=== PATIENT | male | born 1990 | race Caucasian/White ===

== ENCOUNTER → 2016-12-02 | Outpatient (CLI) | payer BC ==
[2016-12-02 13:19] LABS: ALT/SGPT 29 U/L (12-78); AST/SGOT 14 U/L (15-37); BLOOD UREA NITROGEN 14 mg/dl (7-18); BUN/CREATININE RATIO 10.9 (10-20); CALCIUM 8.7 mg/dl (8.5-10.1); CARBON DIOXIDE 31 mmol/L (21-32); CHLORIDE 104 mmol/L (98-107); GLUCOSE 75 mg/dl (70-99); POTASSIUM 4.8 mmol/L (3.5-5.1); SODIUM 140 mmol/L (136-145)
[2016-12-02 13:21] LABS: ALB/GLOB RATIO 1.3 (0.9-2); ALKALINE PHOSPHATASE 74 U/L (45-117); CHOLESTEROL 133 mg/dl (0-200); CHOLESTEROL/HDL RATIO 2.8; HDL CHOLESTEROL 47 mg/dl; LDL CHOLESTEROL CALCULATED 63 mg/dl; TRIGLYCERIDES 116 mg/dl (0-150); VERY LOW DENSITY LIPOPROT CALC 23 mg/dl
== END | disposition home or self-care (01) ==
LOC: C.LABBFT 10:12
PROVIDERS: ATTEND Internal Medicine
DX: Z00.00 Encounter for general adult medical examination without abnormal findings (principal)

== ENCOUNTER 2020-02-25 08:28 | Inpatient (IN) ==
[2020-02-25] MEDS ORDERED: PROCHLORPERAZINE 2 ML IV ONE (08:33)
[2020-02-25] MEDS ORDERED: FAMOTIDINE 20MG IV PUSH 20 MG/5 ML SYR IV STA (08:33)
[2020-02-25] MEDS ORDERED: DiphenhydrAMINE HCL 50 MG/ML VIAL IV STA (08:33)
--- OUTSIDE RECORDS SUMMARY | 2020-02-25 08:33 | External Medical Summary | Continuity of Care Document ---
:1990 Author Name Luisito Arias, Provider Address Unavailable Unavailable , Care Team Providers Name Role Phone Teja Duran [email or web address] Zohaib Chan II, [email or web address] CLAYTON ROMEO M.D., JESI Traore Unavailable Unavailable Unavailable Unavailable Unavailable Problems Blood tests for routine general physical examination (V72.62 ) (Z00.00) Epididymitis (604.90) (N45.1) Scrotal hematoma (608.83) (S30.22XA) Encounter for sterilization (V25.2) (Z30.2) Encounter for contraceptive planning (V25.09) (Z30.09) Nonvenomous insect bite (919.4) (W57.XXXA) Allergies and Adverse Reactions No Known Drug Allergies (Allergy) Medications diazePAM 5 MG Oral Tablet; TAKE 1 TABLET 1 HOUR PRIOR TO PROCEDURE. DO Zohaib Chan II Start: 15-Dec-2017 Quantity: 1 Refills: 0 oxyCODONE-Acetaminophen 7.5-325 MG Oral Tablet; TAKE 1 TO 2 TABLETS EVERY 4 TO 6 HOURS NEEDED FOR PAIN. DO Zohaib Chan II Start: 15-Dec-2017 Quantity: 3 Refills: 0 oxyCODONE-Acetaminophen 7.5-325 MG Oral Tablet; TAKE 1 TO 2 TABLETS EVERY 4 TO 6 HOURS NEEDED FOR PAIN. DO Zohaib Chan II Start: 10-Mar-2018 Quantity: 12 Refills: 0 Ketorolac Tromethamine 10 MG Oral Tablet ; TAKE 1 TABLET 3 TIMES DAILY AFTER MEALS. DO Zohaib Chan II Start: 10-Mar-2018 Quantity: 12 Refills: 0 Procedures History of Shoulder Surgery Status: Comp leted Immunizations Immunizations not documented Family History Father Family history of kidney stones (V18.69) (Z84.1) Status: Act kimberly Social History - Smoking Status Never smoked tobacco Plan of Treatment Planned Observations Planned Goals not documented Results No Known Results Results not documented Encounters Appointment; Zohaib Chan II, DO 10-Mar-2018 9:00 Encounter Diagnosis: Problem not documented Appointment; Zohaib Chan II, DO 03-Mar-2018 11:00 Encounter Diagnosis: Problem not documented Appointment; Urology, Room 8 03-Mar-2018 10:50 Encounter Diagnosis: Problem not documented Appointment; Urology, Nursing Station 15-Sep-2018 8:30 Encounter Diagnosis: Problem not documented
[2020-02-25] MEDS ORDERED: PANTOprazole 80 MG in DEXTROSE 5% 100 ML IV ONE (08:37)
[2020-02-25] MEDS ORDERED: PANTOPRAZOLE BOLUS/DRIP 1 EA IV STA (08:37)
[2020-02-25] MEDS ORDERED: SODIUM CHLORIDE 0.9% 1000ML 1,000 ML IV SCH (08:45)
[2020-02-25] MEDS ORDERED: PANTOprazole 40 MG in DEXTROSE 5% 100 ML IV SCH (08:52)
--- NOTE | 2020-02-25 08:59 | Emergency Department Note ---
Impression & Plan Hematemesis, GI bleed, Acute blood loss anemia, Syncope ED Provider Note NAME: EMILIO HERNANDEZ AGE: 29 SEX: M ARRIVES VIA: Ambulance INFORMANT: Patient, ED PROVIDER(S): Tucker Amaral MD CHIEF COMPLAINT: Vomiting blood PLAN: Disposition: Admit MEDICAL DECISION MAKING: The patient is a pleasant 29-year-old gentleman who presents emergency department after developing acute hematemesis of gross red blood though he does report initial coffee grounds that began around 7 AM this morning and persisted throughout today in setting of feeling upper abdominal pain since Wednesday afternoon with associated burning and he has been taking an acids. Patient had syncopal episode. Denies headstrike. Patient reports he does take ibuprofen regularly for back pain. He denies any regular alcohol use. Denies history of liver disease. He denies any history of similar episodes. He denies any shortness of breath, fevers, chills, diarrhea, bloody or black stools, urinary symptoms. On arrival the patient is uncomfortable and pale appearing but no acute distress, afebrile with stable vital signs. He appears clinically dry. He has mild epigastric tenderness without guarding or rebound. There is no crepitus on palpation of the neck and chest wall. The patient's gross hematemesis prior to arrival he was consented for blood transfusion if his hematemesis persists or he becomes unstable, in addition to significant acute bl ood loss anemia. The patient was agreeable with this. EKG unremarkable without evidence of acute ischemia. CXR negative/no free air. WBC and platelets. H/H 10.8/32.3 without prior values for comparison. Chemistry without acidosis. BUN elevated at 23. INR 1.2. LFTs and electrolytes unremarkable. Troponin negative. Lipase wnl. Given patient's anemia Type and cross ordered to hold. However, patient remained hemodynamically stable and did not have repeat hematemesis. Protonix bolus/gtt administered. CT abd/pelvis with splenomegaly and hiatal hernia and otherwise no acute findings. Case was [place] Mer[place] B[place] [facility], with Dr. Choudhary, [facility] [place] who will evaluate the patient for admission and GI consultation. Triage Nursing notes reviewed and agree them. Additional history obtained from EMS. Prior medical records reviewed Vital Signs: reviewed and remarkable for no significant abnormalities Differential diagnosis: Appendicitis, testicular torsion, infections, diverticulitis, UTI, obstruction, mesenteric ischemia, aortic pathology, inflammatory bowel disease, renal colic, PUD, pancreatitis, biliary pathology, hernia, volvulus, constipation, as well as other pathologies. ER treatment provided: See below. Diagnostics interpreted by me: ECG: NSR, 64 bpm, no ectopy, no overt ST elevation or depression, QTC 375, QRS 80. Cardiac Monitoring: An order for continuous cardiac monitoring was placed and demonstrated NSR, 64 bpm, no ectopy Laboratory studies: See below Imaging studies: SINGLE VIEW CHEST CLINICAL HISTORY: Atypical chest pain. FINDINGS: An AP, portable, upright chest radiograph is compared to study dated 03/08/2018. The cardiomediastinal silhouette is unremarkable. The lungs and pleural spaces are clear. No pneumothorax is seen. The bony thorax is grossly intact. IMPRESSION: No active disease in the chest. -- CT SCAN OF THE ABDOMEN AND PELVIS WITH IV CONTRAST CLINICAL HISTORY: Hemoptysis. Left lower quadrant abdominal pain. COMPARISON STUDY: Abdominal CT dated 03/08/2018. TECHNIQUE: Following the IV administration of 95 cc of Optiray 320, CT scan of the abdomen and pelvis is performed from the lung bases to the proximal femora. Images are reviewed in the axial, sagittal, and coronal planes. IV contrast was administered without complication. A dose lowering technique was utilized adhering to the principles of ALARA. The examination is modestly degraded by motion artifact. CT DOSE: 323.77 mGy.cm FINDINGS: Lung bases: The heart is normal in size and without pericardial effusion. The lung bases are clear noting dependent atelectasis. There is a small hiatal hernia. Liver: The contrast-enhanced liver is normal in size, contour, and attenuation. There is no intrahepatic biliary ductal dilatation. The hepatic veins and portal veins are patent. Gallbladder: Unremarkable. Spleen: The spleen is enlarged measuring 14.5 cm in length. Pancreas: Unremarkable. Adrenal glands: Unremarkable. Kidneys: The contrast enhanced kidneys are normal in size and without hydronephrosis. The kidneys enhance symmetrically. Abdominal vasculature: The abdominal aorta is normal in course and caliber. Bowel: Mild/moderate fecal retention is noted throughout the colon. There is no bowel obstruction. The appendix is normal as imaged. Peritoneum: There is no intraperitoneal free air or abdominal ascites. There is a small fat-containing umbilical hernia. Lymphadenopathy: None. Pelvic viscera: The bladder is mildly distended but otherwise normal in appearance. The prostate and seminal vesicles are normal as imaged. Surgical clips are noted along the spermatic cord bilaterally. Skeletal structures: No lytic or blastic lesions are seen. IMPRESSION: 1. No acute infectious or inflammatory findings are identified in the abdomen or pelvis. 2. Splenomegaly. 3. Small hiatal hernia. 4. Additional findings as above. Consultation(s): Case was d/w Meryl Banda, [facility], with Dr. Choudhary, [facility] [place]. HPI: The patient is a pleasant 29-year-old gentleman who presents emergency department after developing acute hematemesis of gross red blood though he does report initial coffee grounds that began around 7 AM this morning and persisted throughout today in setting of feeling upper abdominal pain since Wednesday after noon with associated burning and he has been taking an acids. Patient had syncopal episode. Denies headstrike. Patient reports he does take ibuprofen regularly for back pain. He denies any regular alcohol use. Denies history of liver disease. He denies any history of similar episodes. He denies any shortness of breath, fevers, chills, diarrhea, bloody or black stools, urinary symptoms. ROS: See above HPI for pertinent positives & negatives. A total of 10 systems r eviewed and were otherwise negative. PAST MEDICAL HISTORY:See Below PAST SURGICAL HISTORY:See Below FAMILY HISTORY:See Below SOCIAL HISTORY:See Below HOME MEDICATIONS:See Below ALLERGIES:See Below VITALS:See Below PHYSICAL EXAMINATION: GENERAL: Awake, alert, uncomfortable, pale-appearing, in no distress HENT: Normocephalic, atraumatic. Oropharynx with dry mucous membranes and otherwise unremarkable. EYES: Normal conjunctiva. Sclera non-icteric. NECK: Supple. No nuchal rigidity. FROM. No JVD. No crepitus of the neck or chest. RESPIRATORY: Clear to auscultation. CARDIAC: Regular rate, normal rhythm. Extremities warm and well perfused. Pulses equal. ABDOMEN: Soft, non-distended. Mild epigastric tenderness to palpation. No rebound or guarding. No masses. RECTAL: Deferred. MUSCULOSKELETAL: Chest examination reveals no tenderness. The back is symmetrical on inspection without obvious abnormality. There is no CVA tenderness to palpation. No joint edema. LOWER EXTREMITIES: Calves are equal size bilaterally and non-tender. No edema. No discoloration. NEURO: Normal sensorium. No sensory or motor deficits noted. SKIN: Mild pallor. No rash or jaundice noted. ED COURSE: Critical Care: I have personally spent greater 65 than minutes of critical care time in the direct management of this patient. This includes bedside care, interpretation of diagnostic studies, and testing, discussion with consultants, patient, and family members, and other required patient management activities. This 65 minutes is in excess of all separately billable procedures. 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 Beliefs That Will Affect Care: None Current Living Situation: Spouse Feels Safe at Home: Yes Smoking Status: Former smoker Second Hand Exposure: No ; Hx Alcohol Use: Yes Alcohol type: beer Alcohol Intake Frequency: Weekly Hx Substance Use: No Allergies Allergies Allergy/AdvReac Type Severity Reaction Status Date / Time No Known Allergies Allergy Mild Verified 02/25/20 10:36 Home Meds Home Medications Medication Instructions Recorded Confirmed No Known Home Medications 02/25/20 02/25/20 Results & Data (ED) Vital Signs Vital Signs - 24 hr 02/25/20 08:30 02/25/20 08:35 02/25/20 08:36 Temperature 36.6 C Temperature Source Oral Pulse Rate 79 78 82 Pulse Rate [Finger] Pulse Rate from SpO2 Sensor 80 81 Respiratory Rate 22 20 22 Respiratory Effort / Characteristics Non-Labored Spontaneous Respiratory Depth Normal Respiratory Pattern Regular Blood Pressure 121/67 121/67 107/70 Blood Pressure [Right Arm] Blood Pressure Mean 82 85 85 Blood Pressure Mean [Right Arm] Blood Pressure Position Lying Pulse Oximetry 99 99 100 Oxygen Delivery Method Room Air Sepsis Recent Fever Within 48 Hours No Sepsis New/Unexplained Change in Mental Status No Sepsis Action Taken by Nursing No Action Required 02/25/20 08:38 02/25/20 08:45 02/25/20 08:51 Temperature Temperature Source Pulse Rate 81 92 H Pulse Rate [Finger] Pulse Rate from SpO2 Sensor 83 Respiratory Rate 23 20 Respiratory Effort / Characteristics Respiratory Depth Respiratory Pattern Blood Pressure 107/65 Blood Pressure [Right Arm] Blood Pressure Mean 67 Blood Pressure Mean [Right Arm] Blood Pressure Position Pulse Oximetry 100 99 99 Oxygen Delivery Method Room Air Sepsis Recent Fever Within 48 Hours Sepsis New/Unexplained Change in Mental Status Sepsis Action Taken by Nursing 02/25/20 09:00 02/25/20 09:01 02/25/20 09:15 Temperature Temperature Source Pulse Rate 81 81 76 Pulse Rate [Finger] Pulse Rate from SpO2 Sensor Respiratory Rate 22 20 17 Respiratory Effort / Characteristics Respiratory Depth Respiratory Pattern Blood Pressure 119/64 Blood Pressure [Right Arm] Blood Pressure Mean 78 Blood Pressure Mean [Right Arm] Blood Pressure Position Pulse Oximetry 99 98 97 Oxygen Delivery Method Sepsis Recent Fever Within 48 Hours Sepsis New/Unexplained Change in Mental Status Sepsis Action Taken by Nursing 02/25/20 09:21 02/25/20 09:30 02/25/20 09:45 Temperature Temperature Source Pulse Rate 67 72 71 Pulse Rate [Finger] 67 Pulse Rate from SpO2 Sensor Respiratory Rate 19 22 20 Respiratory Effort / Characteristics Non-Labored Respiratory Depth Normal Respiratory Pattern Blood Pressure 133/76 118/61 Blood Pressure [Right Arm] 133/76 Blood Pressure Mean 80 72 Blood Pressure Mean [Right Arm] 95 Blood Pressure Position Pulse Oximetry 96 98 96 Oxygen Delivery Method Room Air Sepsis Recent Fever Within 48 Hours Sepsis New/Unexplained Change in Mental Status Sepsis Action Taken by Nursing 02/25/20 10:08 02/25/20 10:09 02/25/20 10:14 Temperature Temperature Source Pulse Rate 71 68 Pulse Rate [Finger] 67 Pulse Rate from SpO2 Sensor Respiratory Rate 24 22 18 Respiratory Effort / Characteristics Respiratory Depth Respiratory Pattern Blood Pressure 111/46 L Blood Pressure [Right Arm] 111/46 L Blood Pressure Mean 56 Blood Pressure Mean [Right Arm] 67 Blood Pressure Position Pulse Oximetry 96 96 Oxygen Delivery Method Room Air Sepsis Recent Fever Within 48 Hours Sepsis New/Unexplained Change in Mental Status Sepsis Action Taken by Nursing 02/25/20 10:15 02/25/20 10:30 02/25/20 10:45 Temperature Temperature Source Pulse Rate 69 65 64 Pulse Rate [Finger] Pulse Rate from SpO2 Sensor Respiratory Rate 20 22 22 Respiratory Effort / Characteristics Respiratory Depth Respiratory Pattern Blood Pressure 103/57 L Blood Pressure [Right Arm] Blood Pressure Mean 67 Blood Pressure Mean [Right Arm] Blood Pressure Position Pulse Oximetry 96 95 Oxygen Delivery Method Sepsis Recent Fever Within 48 Hours Sepsis New/Unexplained Change in Mental Status Sepsis Action Taken by Nursing 02/25/20 11:00 02/25/20 11:15 Temperature Temperature Source Pulse Rate 61 62 Pulse Rate [Finger] Pulse Rate from SpO2 Sensor Respiratory Rate 21 19 Respiratory Effort / Characteristics Respiratory Depth Respiratory Pattern Blood Pressure 112/62 Blood Pressure [Right Arm] Blood Pressure Mean 73 Blood Pressure Mean [Right Arm] Blood Pressure Position Pulse Oximetry 96 94 Oxygen Delivery Method Sepsis Recent Fever Within 48 Hours Sepsis New/Unexplained Change in Mental Status Sepsis Action Taken by Nursing Laboratory Data Attestation: I reviewed the patient's lab results. Result diagrams: 02/25/20 17:03 02/25/20 08:48 Lab Results 02/25/20 02/25/20 02/25/20 Range/Units 08:48 08:48 08:48 WBC 5.51 (4.8-10.8) K/uL RBC 3.72 L (4.7-6.1) M/uL Hgb 10.8 L (14.0-18.0) g/dL POC Hgb (14.0-18.0) g/dl Hct 32.3 L (42-52) % POC Hct (42-52) % MCV 86.8 (80-100) fL MCH 29.0 (25-34) pg MCHC 33.4 (32-36) g/dL RDW Std Deviation 43.5 (36.4-46.3) fL RDW Coeff of Tulio 13.6 (11.5-14.5) % Plt Count 138 (130-400) K/uL MPV 10.6 H (7.4-10.4) fL Immature Gran % (Auto) 0.2 % Neut % (Auto) 47.4 % Lymph % (Auto) 34.5 % [place] % (Auto) 15.2 % Eos % (Auto) 0.2 % Baso % (Auto) 2.5 % Immature Gran # (Auto) 0.01 (0.00-0.02) K/uL Neut # (Auto) 2.61 (1.4-6.5) K/uL Lymph # (Auto) 1.90 (1.2-3.4) K/uL [place] # (Auto) 0.84 H (0.11-0.59) K/uL Eos # (Auto) 0.01 (0-0.5) K/uL Baso # (Auto) 0.14 (0-0.2) K/uL PT 12.3 H (9.0-12.0) Seconds INR 1.2 H (0.9-1.1) APTT 27.3 (21.0-31.0) Seconds PTT Ratio 1.0 POC Sodium (135-144) mmol/L Sodium (136-145) mmol/L POC Potassium (3.3-5.0) mmol/L Potassium (3.5-5.1) mmol/L POC Chloride (101-112) mmol/L Chloride (98-107) mmol/L Carbon Dioxide (21-32) mmol/L POC Total CO2 (24-31) mmol/L Anion Gap (3-11) POC Anion Gap (16-25) mmol/L POC BUN (7-18) mg/dl BUN (7-18) mg/dl Creatinine (0.6-1.4) mg/dl POC Creatinine (0.6-1.3) mg/dl Est Cr Clr Drug Dosing ml/min Est GFR ( Amer) Est GFR (Non-Af Amer) BUN/Creatinine Ratio (10-20) Glucose (70-99) mg/dl POC Glucose (other) (70-99) mg/dl Calcium (8.5-10.1) mg/dl POC Ioniz Calcium Hazel (1.12-1.32) mmol/l Phosphorus (2.5-4.9) mg/dl Magnesium (1.8-2.4) mg/dl Total Bilirubin (0.2-1) mg/dl Direct Bilirubin (0-0.2) mg/dl AST (15-37) U/L ALT (12-78) U/L Alkaline Phosphatase (45-117) U/L Troponin I (0-0.045) ng/ml Total Protein (6.4-8.2) gm/dl Albumin (3.4-5.0) gm/dl Globulin (2.5-4.0) gm/dl Albumin/Globulin Ratio (0.9-2) Lipase (73-393) U/L Blood Type B Positive Blood Type Recheck Antibody Screen NEGATIVE Crossmatch See Detail 02/25/20 02/25/20 02/25/20 Range/Units 08:48 08:59 10:05 WBC (4.8-10.8) K/uL RBC (4.7-6.1) M/uL Hgb (14.0-18.0) g/dL POC Hgb 12.2 L (14.0-18.0) g/dl Hct (42-52) % POC Hct 36 L (42-52) % MCV (80-100) fL MCH (25-34) pg MCHC (32-36) g/dL RDW Std Deviation (36.4-46.3) fL RDW Coeff of Tulio (11.5-14.5) % Plt Count (130-400) K/uL MPV (7.4-10.4) fL Immature Gran % (Auto) % Neut % (Auto) % Lymph % (Auto) % [place] % (Auto) % Eos % (Auto) % Baso % (Auto) % Immature Gran # (Auto) (0.00-0.02) K/uL Neut # (Auto) (1.4-6.5) K/uL Lymph # (Auto) (1.2-3.4) K/uL [place] # (Auto) (0.11-0.59) K/uL Eos # (Auto) (0-0.5) K/uL Baso # (Auto) (0-0.2) K/uL PT (9.0-12.0) Seconds INR (0.9-1.1) APTT (21.0-31.0) Seconds PTT Ratio POC Sodium 137 (135-144) mmol/L Sodium 138 (136-145) mmol/L POC Potassium 4.5 (3.3-5.0) mmol/L Potassium 4.7 (3.5-5.1) mmol/L POC Chloride 101 (101-112) mmol/L Chloride 108 H (98-107) mmol/L Carbon Dioxide 27 (21-32) mmol/L POC Total CO2 27 (24-31) mmol/L Anion Gap 3.0 (3-11) POC Anion Gap 15.0 L (16-25) mmol/L POC BUN 23 H (7-18) mg/dl BUN 23 H (7-18) mg/dl Creatinine 0.99 (0.6-1.4) mg/dl POC Creatinine 1.1 (0.6-1.3) mg/dl Est Cr Clr Drug Dosing 109.1 ml/min Est GFR ( Amer) 118.0 Est GFR (Non-Af Amer) 101.8 BUN/Creatinine Ratio 22.9 H (10-20) Glucose 132 H (70-99) mg/dl POC Glucose (other) 139 H (70-99) mg/dl Calcium 7.5 L (8.5-10.1) mg/dl POC Ioniz Calcium Hazel 1.20 (1.12-1.32) mmol/l Phosphorus 2.8 (2.5-4.9) mg/dl Magnesium 1.8 (1.8-2.4) mg/dl Total Bilirubin 0.6 (0.2-1) mg/dl Direct Bilirubin 0.2 (0-0.2) mg/dl AST 24 (15-37) U/L ALT 33 (12-78) U/L Alkaline Phosphatase 43 L (45-117) U/L Troponin I < 0.015 (0-0.045) ng/ml Total Protein 5.5 L (6.4-8.2) gm/dl Albumin 2.8 L (3.4-5.0) gm/dl Globulin 2.7 (2.5-4.0) gm/dl Albumin/Globulin Ratio 1.0 (0.9-2) Lipase 81 (73-393) U/L Blood Type Blood Type Recheck B Positive Antibody Screen Crossmatch Administered Medications Lactated Ringer's (Lr) 1,000 mls @ 125 mls/hr IV .Q8H ARELY Stop: 02/26/20 13:26 Last Infusion: 02/25/20 23:11 Dose: 0 mls/hr Documented by: [id number] Admin: 02/25/20 21:43 Dose: 125 mls/hr Documented by: [id number] Infusion: 02/25/20 21:43 Dose: 125 mls/hr Documented by: [id number] Admin: 02/25/20 13:58 Dose: 125 mls/hr Documented by: [id number] Pantoprazole Sodium 40 mg/ (Syringe) 10 mls @ 5 mls/min IV BID ARELY Stop: 03/26/20 20:59 Last Admin: 02/25/20 20:41 Dose: 5 mls/min Documented by: [id number] Sodium Chloride (Nss 1000ml) 500 mls @ 999 mls/hr IV .Q31M ONE Stop: 02/25/20 23:26 Last Admin: 02/25/20 23:19 Dose: 999 mls/hr Documented by: [id number] Ioversol (Optiray 320 100ml) 95 ml IV ONCE PRN PRN Reason: Interaction Checking Stop: 02/29/20 10:05 Last Admin: 02/25/20 10:06 Dose: 95 ml Documented by: [id number] Octreotide Acetate (Sandostatin) 100 mcg SQ Q8H ARELY Stop: 03/26/20 13:59 Last Admin: 02/25/20 21:42 Dose: 100 mcg Documented by: [id number] Admin: 02/25/20 15:32 Dose: 100 mcg Documented by: [id number] Ondansetron HCl (Zofran) 4 mg IV Q4H PRN PRN Reason: Nausea And Vomiting Stop: 03/26/20 13:26 Last Admin: 02/25/20 22:07 Dose: 4 mg Documented by: [id number] Sucralfate (Carafate) 1 gm PO ACHS ARELY Stop: 03/26/20 16:29 Last Admin: 02/25/20 20:41 Dose: 1 gm Documented by: [id number] Admin: 02/25/20 15:33 Dose: 1 gm Documented by: [id number] Discontinued Medications Diphenhydramine HCl (Benadryl) 25 mg IV NOW STA Stop: 02/25/20 08:34 Last Admin: 02/25/20 09:10 Dose: 25 mg Documented by: [id number] Sodium Chloride (Nss 1000ml) 1,000 mls @ 999 mls/hr IV .Q1H1M ARELY Stop: 02/25/20 09:45 Last Infusion: 02/25/20 09:55 Dose: 0 mls/hr Documented by: [id number] Admin: 02/25/20 08:54 Dose: 999 mls/hr Documented by: [id number] Famotidine (Pepcid 20mg Iv Push) 20 mg in 5 mls @ 2.5 mls/min IV NOW STA Stop: 02/25/20 08:34 Last Admin: 02/25/20 09:10 Dose: 2.5 mls/min Documented by: [id number] Prochlorperazine (Compazine) 2 mls @ 1 mls/min IV ONE ONE Stop: 02/25/20 08:34 Last Admin: 02/25/20 09:10 Dose: 1 mls/min Documented by: [id number] Pantoprazole Sodium (Protonix Bolus/Drip) 0 mls @ 1 mls/hr IV ONE STA Stop: 02/25/20 08:38 Last Admin: 02/25/20 09:21 Dose: 1 mls/hr Documented by: [id number] Pantoprazole Sodium 40 mg/ (Dextrose) 100 mls @ 20 mls/hr IV Q5H ARELY Stop: 03/26/20 08:51 Last Infusion: 02/25/20 13:55 Dose: 0 mg/hr, 0 mls/hr Documented by: [id number] Admin: 02/25/20 08:53 Dose: 8 mg/hr, 20 mls/hr Documented by: [id number] Pantoprazole Sodium 80 mg/ (Dextrose) 120 mls @ 400 mls/hr IV NOW ONE Stop: 02/25/20 08:54 Last Infusion: 02/25/20 09:15 Dose: 0 mls/hr Documented by: [id number] Admin: 02/25/20 08:53 Dose: 400 mls/hr Documented by: [id number] Morphine Sulfate (Morphine Sulfate) 8 mg IV NOW STA Stop: 02/25/20 09:24 Last Admin: 02/25/20 09:39 Dose: Not Given Documented by: [id number] Morphine Sulfate (Morphine Sulfate) Confirm Administered Dose 8 mg .ROUTE .STK- MED ONE Stop: 02/25/20 09:35 Last Admin: 02/25/20 09:36 Dose: 4 mg Documented by: [id number] Morphine Sulfate (Morphine Sulfate) 4 mg IV Q2H PRN PRN Reason: Pain Stop: 03/10/20 13:26 Last Admin: 02/25/20 22:23 Dose: 4 mg Documented by: [id number] Blood Pressure Blood Pressure Findings: Normal blood pressure Discharge Plan Visit Data *Final* Discharge Date/Time: 02/25/20 13:00 Chief Complaint: Vomiting Stated Complaint: abd pain/vomit ED Provider: Tucker Amaral Discharge Problem: Hematemesis, GI bleed, Acute blood loss anemia, Syncope Patient Disposition: Admitted As Inpatient Discharge Instructions Interventions: ED Discharge Assessment Last Done: 02/25/20 13:00 Discharge Problem: Hematemesis Qualifiers: Nausea presence: with nausea Qualified Code(s): K92.0 - Hematemesis
[2020-02-25 09:05] LABS: Basophils # (auto) 0.14 K/uL (0-0.2); Basophils % (auto) 2.5 %; Eosinophils # (auto) 0.01 K/uL (0-0.5); Eosinophils % (auto) 0.2 %; Hematocrit (blood only) 32.3 % (42-52); Hemoglobin 10.8 g/dL (14.0-18.0); Immature Granulocytes # (auto) 0.01 K/uL (0.00-0.02); Immature Granulocytes % (auto) 0.2 %; Lymphocytes % (auto) 34.5 %; Mean Corpuscular Hgb Conc 33.4 g/dL (32-36); Mean Corpuscular Volume 86.8 fL (80-100); Mean Platelet Volume 10.6 fL (7.4-10.4); Monocytes # (auto) 0.84 K/uL (0.11-0.59); Monocytes % (auto) 15.2 %; Neutrophils # (auto) 2.61 K/uL (1.4-6.5); Neutrophils % (auto) 47.4 %; Platelet Count 138 K/uL (130-400); RDW Coefficient of Variation 13.6 % (11.5-14.5); RDW Standard Deviation 43.5 fL (36.4-46.3); Red Blood Count 3.72 M/uL (4.7-6.1); White Blood Count 5.51 K/uL (4.8-10.8)
--- NOTE | 2020-02-25 09:06 | XRay Report ---
SINGLE VIEW CHEST CLINICAL HISTORY: Atypical chest pain. FINDINGS: An AP, portable, upright chest radiograph is compared to study dated 03/08/2018. The cardiome diastinal silhouette is unremarkable. The lungs and pleural spaces are clear. No pneumothorax is seen . The bony thorax is grossly intact. IMPRESSION: No active disease in the chest. ACT 112: Negative or not required by law. Electronically signed by: Arjun Garcia M.D. 02/25/2020 9:05 AM
[2020-02-25 09:12] LABS: iSTAT Creatinine 1.1 mg/dl (0.6-1.3); iSTAT Hemoglobin 12.2 g/dl (14.0-18.0); iSTAT Ionized Calcium 1.2 mmol/l (1.12-1.32); iSTAT Potassium 4.5 mmol/L (3.3-5.0)
[2020-02-25 09:22] LABS: Alanine Aminotransferase 33 U/L (12-78); Albumin Level 2.8 gm/dl (3.4-5.0); Aspartate Aminotransferase 24 U/L (15-37); BUN Creatinine Ratio 22.9 (10-20); Bilirubin Direct 0.2 mg/dl (0-0.2); Blood Urea Nitrogen 23 mg/dl (7-18); Calcium 7.5 mg/dl (8.5-10.1); Carbon Dioxide 27 mmol/L (21-32); Chloride 108 mmol/L (98-107); Creatinine Clr Calc Pharmacy 109.1 ml/min; Est GFR (Non-African American) 101.8; Glucose 132 mg/dl (70-99); Lipase 81 U/L (73-393); Magnesium 1.8 mg/dl (1.8-2.4); Potassium 4.7 mmol/L (3.5-5.1); Sodium 138 mmol/L (136-145)
[2020-02-25] MEDS ORDERED: MoRPHine SULFATE 10 MG/ML CARP/VIAL IV STA (09:23)
[2020-02-25] MEDS ORDERED: SODIUM CHLORIDE 0.9% 250 ML IV PRN ×4 (09:24→23:54)
[2020-02-25 09:25] LABS: Alkaline Phosphatase 43 U/L (45-117); Bilirubin,Total 0.6 mg/dl (0.2-1); Globulin 2.7 gm/dl (2.5-4.0); Phosphorus 2.8 mg/dl (2.5-4.9); Total Protein 5.5 gm/dl (6.4-8.2); Troponin I < 0.015 ng/ml (0-0.045)
[2020-02-25] MEDS ORDERED: MoRPHine SULFATE 4 MG/ML 1 ML CARP\\VIAL ONE (09:34)
[2020-02-25 09:39] LABS: INR 1.2 (0.9-1.1); Partial Thromboplastin Time 27.3 Seconds (21.0-31.0); Prothrombin Time 12.3 Seconds (9.0-12.0)
[2020-02-25] MEDS ORDERED: IOVERSOL 100ml IV PRN (10:06)
--- NOTE | 2020-02-25 10:24 | CT Scan Report ---
CT SCAN OF THE ABDOMEN AND PELVIS WITH IV CONTRAST CLINICAL HISTORY: Hemoptysis. Left lower quadrant abdominal pain. COMPARISON STUDY: Abdominal CT dated 03/08/2018. TECHNIQUE: Following the IV administration of 95 cc of Optiray 320, CT scan of the abdomen and pelvi s is performed from the lung bases to the proximal femora. Images are reviewed in the axial, sagittal , and coronal planes. IV contrast was administered without complication. A dose lowering technique wa s utilized adhering to the principles of ALARA. The examination is modestly degraded by motion artifa ct. CT DOSE: 323.77 mGy.cm FINDINGS: Lung bases: The heart is normal in size and without pericardial effusion. The lung bases are clear no ting dependent atelectasis. There is a small hiatal hernia. Liver: The contrast-enhanced liver is normal in size, contour, and attenuation. There is no intrahepa tic biliary ductal dilatation. The hepatic veins and portal veins are patent. Gallbladder: Unremarkable. Spleen: The spleen is enlarged measuring 14.5 cm in length. Pancreas: Unremarkable. Adrenal glands: Unremarkable. Kidneys: The contrast enhanced kidneys are normal in size and without hydronephrosis. The kidneys enh ance symmetrically. Abdominal vasculature: The abdominal aorta is normal in course and caliber. Bowel: Mild/moderate fecal retention is noted throughout the colon. There is no bowel obstruction. Th e appendix is normal as imaged. Peritoneum: There is no intraperitoneal free air or abdominal ascites. There is a small fat-containin g umbilical hernia. Lymphadenopathy: None. Pelvic viscera: The bladder is mildly distended but otherwise normal in appearance. The prostate and seminal vesicles are normal as imaged. Surgical clips are noted along the spermatic cord bilaterally. Skeletal structures: No lytic or blastic lesions are seen. IMPRESSION: 1. No acute infectious or inflammatory findings are identified in the abdomen or pelvis. 2. Splenomegaly. 3. Small hiatal hernia. 4. Additional findings as above. ACT 112: Negative or not required by law. Electronically signed by: Arjun Garcia M.D. 02/25/2020 10:23 AM
--- NOTE | 2020-02-25 11:44 | History & Physical Report ---
Date of Service February 25, 2020 Assessment & Plan (1) Hematemesis: (2) GI bleed: -Admit to telemetry -GI consulted, Dr. Santa for possible EGD -Type and screen, blood consent obtained by ER physician, 3 units on hold if needed, no lightheadedness/dizziness/SOB, not tachycardic, no need for t ransfusion at this -Hgb of 10.8, last was 14.7 in March 2018, recheck H&H at 1700 -Start on IV Protonix twice daily, octreotide for history of alcohol use, Carafate -Vomitus x3 which was bright red per patient report -Continue IVF at 125/h x 1 day -Antiemetics and pain control ordered IV -N.p.o. (3) Splenomegaly: -Noted on CT abdomen - Gi consulted as above (4) Hiatal hernia: -Small as noted on CT, patient denies history of indigestion (5) DVT prophylaxis: - teds, scds CODE: Full code Dispo: From home, likely to remain in the hospital x 1-2 days History of Present Illness Primary Care Provider: NO PCP This is a 29-year-old male PMHx left shoulder ligament repair, back injury, remote smoking history (2 to 3 months), who presents for acute onset of abdominal pain over the past 2 days, followed by vomiting with bright red blood. He was in his normal state of health prior to yesterday, but then developed some indigestion which seem to wax and wane. He reports this morning became acutely nauseous and vomited bright red blood, he then proceeded to vomit 2 more times this morning with bright red blood and some small amounts of coffee-ground appearing emesis. Last time he ate or drank anything was yesterday. His last bowel movement was yesterday and was dark and tarry in appearance, denies any BRBPR. He has been using ibuprofen 600 mg once daily on and off for the past week as he has back pain from an injury as a teenager, as he works with tree removal/cutting down/logging daily. No other routine medications. SHx: He admits to drinking beer, 3 drinks on Wednesday night, 2 drinks on night. He denies drinking on a daily basis. PMHx: He denies any history of abdominal issues previously, no history of ulcerative colitis, Crohn's, IBS. FamHx: No family history of abdominal complaints that he is aware of. His younger sister was diagnosed with a pituitary adenoma 1 year ago, [facility], currently age 26. Allergies Allergy/AdvReac Type Severity Reaction Status Date / Time No Known Allergies Allergy Mild Verified 02/25/20 10:36 Home Medications Home Medications Medication Instructions Recorded Confirmed Type No Known Home Medications 02/25/20 02/25/20 History Past Med/Surg History Family History (Updated 02/25/20 @ 11:52 by Cherrie Banda PA-C) Sister Pituitary adenoma age 25 when removed, 4 yrs younger than pt Social History (Updated 02/25/20 @ 11:53 by Cherrie Banda PA-C) Preferred Language: Persian Communication Ability: Effective Swimming Pool Maintenance Required: No Beliefs That Will Affect Care: None Current Living Situation: Spouse Other Information That Helps Us Care for You: No Feels Safe at Home: Yes Safety Concerns: Feels Safe At This Time Smoking Status: Former smoker Do You Dip or Chew Tobacco: No ; Second Hand Exposure: No ; Tobacco Cessation Education Requested by Patient: No Hx Alcohol Use: Yes Alcohol type: beer Alcohol Intake Frequency: Weekly Hx Substance Use: No Review of Systems Review of Systems: Constitutional: No fever, sweats or chills, + fatigue Eyes: No diplopia, no worsening or blurred vision ENT: normal hearing, no trouble swallowing Respiratory: No cough, sputum, dyspnea at rest or on exertion Cardiovascular: No chest pain, tightness or palpitations Abdomen: + Pain, nausea, vomiting as described per HPI, no diarrhea or constipation, last BM yesterday, black and tarry in appearance. Musculoskeletal: No joint pain, calf pain, swelling Neurologic: No weakness, numbness/tingling, or balance problems Psychiatric: No anxiety or depression Skin: No rash or itch Physical Exam Physical Exam: General: awake, alert, no apparent distress Head: Normocephalic, atraumatic ENT: PERRL, EOMI, no pharyngeal exudate, mucous membranes moist Chest: Clear to auscultation, on room air, no adventitious breath sounds Cardiac: Regular rate and rhythm, no murmur, no JVD, normal peripheral pulses, good capillary refill Abdominal: NABS x 4 quadrants, soft, nondistended, + tender to palpation in bilateral lower quadrants and epigastric region,, no rebound, guarding Extremities: Normal inspection, no peripheral edema or erythema, calfs nontender to palpation Psych: Normal mood and affect Neuro: AAO x 3, strength intact bilaterally and rated 5/5, no motor deficits, speech is clear, no peripheral sensory deficits Skin: no rash or erythema Results & Data Results & Data ([facility]) Vital Signs (Past 12 Hours) Vital Signs Temp Pulse Pulse Resp BP BP Pulse Ox 02/25/20 10:14 67 18 111/46 L 96 02/25/20 09:21 67 16 133/76 97 02/25/20 08:51 99 02/25/20 08:35 36.6 C 78 20 121/[address] SCAN OF THE ABDOMEN AND PELVIS WITH IV CONTRAST CLINICAL HISTORY: Hemoptysis. Left lower quadrant abdominal pain. COMPARISON STUDY: Abdominal CT dated 03/08/2018. TECHNIQUE: Following the IV administration of 95 cc of Optiray 320, CT scan of the abdomen and pelvis is performed from the lung bases to the proximal femora. Images are reviewed in the axial, sagittal, and coronal planes. IV contrast was administered without complication. A dose lowering technique was utilized adhering to the principles of ALARA. The examination is modestly degraded by motion artifact. CT DOSE: 323.77 mGy.cm FINDINGS: Lung bases: The heart is normal in size and without pericardial effusion. The lung bases are clear noting dependent atelectasis. There is a small hiatal he rnia. Liver: The contrast-enhanced liver is normal in size, contour, and attenuation. There is no intrahepatic biliary ductal dilatation. The hepatic veins and portal veins are patent. Gallbladder: Unremarkable. Spleen: The spleen is enlarged measuring 14.5 cm in length. Pancreas: Unremarkable. Adrenal glands: Unremarkable. Kidneys: The contrast enhanced kidneys are normal in size and without hydronephrosis. The kidneys enhance symmetrically. Abdominal vasculature: The abdominal aorta is normal in course and caliber. Bowel: Mild/moderate fecal retention is noted throughout the colon. There is no bowel obstruction. The appendix is normal as imaged. Peritoneum: There is no intraperitoneal free air or abdominal ascites. There is a small fat-containing umbilical hernia. Lymphadenopathy: None. Pelvic viscera: The bladder is mildly distended but otherwise normal in appearance. The prostate and seminal vesicles are normal as imaged. Surgical clips are noted along the spermatic cord bilaterally. Skeletal structures: No lytic or blastic lesions are seen. IMPRESSION: 1. No acute infectious or inflammatory findings are identified in the abdomen or pelvis. 2. Splenomegaly. 3. Small hiatal hernia. 4. Additional findings as above. ACT 112: Negative or not required by law. Electronically signed by: Arjun Garcia M.D. 02/25/2020 10:23 AM Dictated: 02/25/20 1016 Transcribed: 02/25/20 1016 SINGLE VIEW CHEST CLINICAL HISTORY: Atypical chest pain. FINDINGS: An AP, portable, upright chest radiograph is compared to study dated 03/08/2018. The cardiomediastinal silhouette is unremarkable. The lungs and pleural spaces are clear. No pneumothorax is seen. The bony thorax is grossly intact. IMPRESSION: No active disease in the chest. ACT 112: Negative or not required by law. Electronically signed by: Arjun Garcia M.D. 02/25/2020 9:05 AM Dictated: 02/25/20 0905 Transcribed: 02/25/20 0905 ECG Additional Comments: 25-FEB-2020 09:20:01 [facility]-EDSTAT ROUTINE RETRIEVAL Normal sinus rhythm Normal ECG When compared with ECG of 16-JUL-2008 01:08, No significant change was found 25mm/s 10mm/mV 150Hz 9.0.9 12SL 241 REX: 16 Referred by: REFERRED SELF Unconfirmed Vent. rate 64 BPM PA interval 136 ms QRS duration 80 ms QT/QTc 364/375 ms P-R-T axes 54 43 21 Code Status & VTE Plan Code Status Full code VTE Prophylaxis Plan VTE Prophylaxis will be ordered: No Reason for no VTE drug order: Contraindicated (Secondary to GI bleed) Supervising Physician Co-Signing Physician Notes Patient was seen and examined independently I discussed the case with Meryl FIERRO This patient was comfortable but medicated with parenteral morphine. He says he has been vomiting blood for the last few days. He been using ibuprofen. His hemoglobin is 10. He is not tachycardic or hypotensive at this point time. Patient be brought to our facility hydrated given intravenous Protonix and GI consultation undertaken. Vital signs are reviewed Patient not pale he is in mild distress Cardiac exam is regular without murmurs lungs are clear without wheezes or crackles abdomen normoactive bowel sounds soft very minor tenderness in the epigastrium Plan to be bring the patient into our facility hydrate and follow serial hemoglobins transfuse if necessary GI consultation for possible evaluation for upper GI bleeding continuing intravenous proton pump inhibitor I reviewed pertinent past medical social family history and also the plan of care and agree with the plan of care. Any exceptions will be noted below PG Care Time/CCT Total # of Minutes Spent Total Time Spent with Patient: Total time spent is greater than 50% in coordination of care (as documented) at patient's floor/unit and/or counseling patient: Coding Level of Care Code 64022 Initial Inpt Care Lvl 3 Diagnoses Hematemesis K92.0 GI bleed K92.2 Splenomegaly R16.1 Hiatal hernia K44.9 DVT prophylaxis Z29.9
[2020-02-25] MEDS ORDERED: MoRPHine SULFATE 4 MG/ML 1 ML CARP\\VIAL IV PRN (13:27)
[2020-02-25] MEDS ORDERED: ACETAMINOPHEN 325 MG TAB PO PRN (13:27)
[2020-02-25] MEDS ORDERED: ONDANSETRON INJ 2 MG/ML 2 ML VIAL IV PRN (13:27)
[2020-02-25] MEDS: LACTATED RINGER'S 1,000 ML IV SCH ×2 (13:58→21:43)
--- NOTE | 2020-02-25 14:37 | Electrocardiogram Report ---
Test Reason : Blood Pressure : / mmHG Vent. Rate : 064 BPM Atrial Rate : 064 BPM P-R Int : 136 ms QRS Dur : 080 ms QT Int : 364 ms P-R-T Axes : 054 043 021 degrees QTc Int : 375 ms Normal sinus rhythm Normal ECG When compared with ECG of 16-JUL-2008 01:08, No significant change was found Confirmed by Edilberto Davis ([id number]) on 02/25/2020 2:36:38 PM Referred By: REFERRED SELF Confirmed By:Edilberto Davis
--- NOTE | 2020-02-25 14:56 | Gastrointestinal Consultation ---
Date of Consultation February 25, 2020 Assessment & Plan (1) Hematemesis: likely from NSAID induced PUD. recs: NPO protonix 40 mg IV BID Insert two large bore IVs IVFs plan for EGD to evaluate tomorrow trend H/H, transfuse prn hgb <7 strict avoidance of NSAIDS Thank you for allowing me to participate in the care of this patient (2) Peptic ulcer disease: History of Present Illness Attending Physician: Brendan Choudhary MD 29 yo male who presents with hematemesis. He notes this morning he started to have hematemesis with bright red blood and clots. Never had this before. It happened a few times today, has not happened since admission/arrival. Otherwise denies abd pains, fevers, change in bowel habits. He has a hx back injuries and takes ibuprofen 600 mg daily 15 days per month for the last few years. Labs reviewed. Allergies Allergy/AdvReac Type Severity Reaction Status Date / Time No Known Allergies Allergy Mild Verified 02/25/20 10:36 Home Medications Home Medications Medication Instructions Recorded Confirmed Type No Known Home Medications 02/25/20 02/25/20 History Patient History Family History (Updated 02/25/20 @ 11:52 by Cherrie Banda PA-C) Sister Pituitary adenoma age 25 when removed, 4 yrs younger than pt Social History (Updated 02/25/20 @ 11:53 by Cherrie Banda PA-C) Preferred Language: Hungarian Communication Ability: Effective Security Systems Administrator Required: No Beliefs That Will Affect Care: None Current Living Situation: Spouse Feels Safe at Home: Yes Smoking Status: Former smoker Second Hand Exposure: No ; Hx Alcohol Use: Yes Alcohol type: beer Alcohol Intake Frequency: Weekly Hx Substance Use: No Review of Systems Constitutional: no fever, no chills and no weight loss Eyes: as per Subjective / HPI Ear, Nose, Mouth, Throat: as per Subjective / HPI Respiratory: no dyspnea and no dyspnea on exertion Cardiovascular: no chest pain and no palpitations Gastrointestinal: as per Subjective / HPI Musculoskeletal: no joint pain and no swelling Integumentary: no rash and no lesions Neurologic: no numbness and no paresthesia Psychiatric: no depression and no anxiety Endocrine: no fatigue Hematologic / Lymphatic: no easy bleeding and no easy bruising Physical Exam Constitutional: WD/WN, vitals as above Eyes: EOM intact bilaterally Neck: normal visual inspection Respiratory: normal respiratory effort, lungs clear to auscultation Cardiovascular: RRR, no murmur, no edema Gastrointestinal (Abdomen): Inspection/Auscultation: abdomen normal to inspection; abdomen not distended Percussion/Palpation: abdomen soft; abdomen nontender and no hepatosplenomegaly Musculoskeletal: Extremities: no cyanosis Gait: normal gait Skin: no rashes, warm and dry Neurologic: moves all extremities Psychiatric: A+Ox3, euthymic affect Results & Data ([facility]) Vital Signs (Past 12 Hours) Vital Signs Temp Pulse Pulse Resp BP BP Pulse Ox 02/25/20 13:00 36.6 C 80 21 102/61 96 02/25/20 12:45 80 21 102/61 96 02/25/20 12:30 68 21 102/61 96 02/25/20 12:27 80 21 02/25/20 12:26 78 22 115/56 L 96 02/25/20 12:15 73 16 02/25/20 12:00 75 21 02/25/20 11:45 75 17 02/25/20 11:30 53 L 18 109/57 L 95 02/25/20 11:15 62 19 94 02/25/20 11:00 61 21 112/62 96 02/25/20 10:45 64 22 95 02/25/20 10:30 65 22 103/57 L 96 02/25/20 10:15 69 20 02/25/20 10:14 67 18 111/46 L 96 02/25/20 10:09 68 22 02/25/20 10:08 71 24 111/46 L 96 02/25/20 09:45 71 20 96 02/25/20 09:30 72 22 118/61 98 02/25/20 09:21 67 67 19 133/76 133/76 96 02/25/20 09:15 76 17 97 02/25/20 09:01 81 20 98 02/25/20 09:00 81 22 119/64 99 02/25/20 08:51 99 02/25/20 08:45 92 H 20 107/65 99 02/25/20 08:38 81 23 100 02/25/20 08:36 82 22 107/70 100 02/25/20 08:35 36.6 C 78 20 121/67 99 02/25/20 08:30 79 22 121/67 99 PG Care Time/CCT Total # of Minutes Spent Total Time Spent with Patient: Total time spent is greater than 50% in coordination of care (as documented) at patient's floor/unit and/or counseling patient: Coding Level of Care Code 58808 Inpt Consult Level 4 Diagnoses Hematemesis K92.0 Peptic ulcer disease K27.9
[2020-02-25] MEDS: OCTREOTIDE ACETATE 100 MCG/ML VIAL SQ SCH ×2 (15:32→21:42)
[2020-02-25] MEDS: SUCRALFATE 1 GM/10 ML UDC PO SCH ×2 (15:33→20:41)
[2020-02-25 17:20] LABS: Hematocrit (blood only) 27.6 % (42-52); Hemoglobin 9.4 g/dL (14.0-18.0)
[2020-02-25] MEDS ORDERED: PANTOprazole 40 MG in SYRINGE 0 ML IV SCH (21:00)
[2020-02-25] MEDS ORDERED: SODIUM CHLORIDE 0.9% 1000ML 500 ML IV ONE (22:56)
[2020-02-25 23:44] LABS: Hematocrit (blood only) 19.1 % (42-52); Hemoglobin 6.5 g/dL (14.0-18.0)
--- NOTE | 2020-02-26 00:27 | Communication Note ---
Date of Service: February 26, 2020 Notified that pt had another episode of bright red bloody emesis @ ~10:45pm, about 800cc. BP 102/46 at that time with HR of 90. Stat H/H ordered, given a 500ml bolus of NSS. Hgb came back at 6.5. Pt transfused 2U of leukoreduced pRBCs. Noted that pt was on octreotide SQ. Per pharmacy, octreotide drip better option for active bleed. Pt switched to octreotide and protonix drips. Consult placed to ICU/certified nuclear medicine technologist and "transferred" to ICU (already physically in ICU) for higher level of care. Resident Activity Tracking Resident Involvement: Cloud Developer Coverage Note Care Provided: Adult Hospital Medicine
--- NOTE | 2020-02-26 00:40 | Critical Care Consultation ---
Date of Consultation February 26, 2020 Assessment & Plan (1) Acute blood loss anemia: Reason Critically Ill: 29-year-old male with no significant past medical history presents to the ICU for acute GI bleed with critical anemia and large amounts of hematemesis. Optimizing with transfusions and to undergo EGD early this morning. Neuro - CAM ICU: Negative Cardiac - No history of cardiac disease, currently hemodynamically stable and in normal sinus rhythm Respiratory - No history respiratory disease, maintain sats on room air GI - Acute GI bleedpresentation suggestive of upper GI bleed, likely secondary to heavy NSAID use - spoke with Dr. Oconnell with GI, patient to undergo EGD at 6 AM. Will optimize transfusion prior -Continue Protonix and octreotide drips -Continue Carafate -N.p.o. -Blood transfusions as below -IV Reglan prior to EGD -Avoid NSAIDs -Need education for alcohol and tobacco cessation Splenomegalymild enlargement of 14.[address] exam -Likely non-culprit for anemia given acute bleed -No signs of infectious process RENAL/LYTES - Creatinine stable, electrolytes within normal limits. Monitor with routine BMPs and replete as necessary - Strict I's and O's ENDO - No history diabetes or thyroid disease ICU hyperglycemic protocol HEME - Acute blood loss anemiahemoglobin dropped from 9.5-6.5 over 6 hours, patient with 800 mL hematemesis with mil bright red blood -See GI bleed management above -Currently transfusing 2 units RBCs, 1 unit FFP, 1 unit cryo -Target hemoglobin of 10, target fibrinogen greater than 200, platelets within normal limits, INR mildly elevated at 1.2 -Likely patient will need additional units RBCs, currently 2 additional units on hold -We will continue to trend H&H and transfuse as indicated ID - No indication for infectious process at this time LINES/IV ACCESS - Large bore PIV's x2 DVT PROPHYLAXIS - SCDs, holding anticoagulation for acute bleed I have personally spent 35 minutes of critical care time in the direct management of this patient. This is a life/limb threatening event. This includes time spent evaluating patient, direct bedside care, chart review, placing orders, interpretation of diagnostic studies, discussion with consultants, patient, and family members, as well as other required patient management activities. This time is exclusive of all separately billable procedures, and teaching time and separate from and in addition to any other critical care service time. Thank you for allowing us to participate in the care of this patient. Please refer to my attending physician's documentation for any further recommendations. (2) Hiatal hernia: (3) Splenomegaly: (4) GI bleed: (5) Hematemesis: (6) DVT prophylaxis: (7) Peptic ulcer disease: History of Present Illness Attending Physician: Brendan Choudhary MD History of Present Illness Mr. Husain is a 29-year-old male with PMH of left shoulder ligament repair, back injury who presented to the emergency department yesterday with abdominal pain x2 days and new onset of hematemesis of bright red blood with small amounts of coffee-ground emesis mixed. He also had a bowel movement the day before that was described as dark and tarry in appearance. He reports using ibuprofen 600 mg once daily since he was a teenager and sustained a back injury, and he reports drinking approximately [address] of the abdomen showed no acute infections inflammatory processes, splenomegaly, small hiatal hernia. He was admitted to PCU with acute GI bleed. He is placed on Protonix and octreo tide drips, and scheduled for EGD in the a.m. His hemoglobin had previously dropped from 10.8 on admission to 9.4 this afternoon. However, I was notified by the on-call hospitalist that repeat hemoglobin had dropped to 6.5, and patient has recently vomited an additional 800 mL of bright mil red blood. Overall the patient remains hemodynamically stable, but is pallor in color. He is currently receiving 2 units RBCs. GI solution professional physician paged and plan for patient to go at approximately 0600 for EGD once transfused Patient upgrading to ICU status at this time. Currently patient reports back pain and mild testicular pain which he states is been ongoing for the past few days and continued bloody emesis. He denies headache, dizziness, recent illness, shortness of breath, chest pain, changes in urinary stream. He did report some mild tenderness in the right lower quadrant of his abdomen with deep palpation. Allergies Allergy/AdvReac Type Severity Reaction Status Date / Time No Known Allergies Allergy Mild Verified 02/25/20 10:36 Home Medications Home Medications Medication Instructions Recorded Confirmed Type No Known Home Medications 02/25/20 02/25/20 History Patient History Family History Sister Pituitary adenoma age 25 when removed, 4 yrs younger than pt Social History Preferred Language: Tanzanian Communication Ability: Effective Stroboscope Operator Required: No Beliefs That Will Affect Care: None Current Living Situation: Spouse Feels Safe at Home: Yes Smoking Status: Former smoker Second Hand Exposure: No ; Hx Alcohol Use: Yes Alcohol type: beer Alcohol Intake Frequency: Weekly Hx Substance Use: No Review of Systems Review of Systems: All systems reviewed & are unremarkable except as noted in HPI & below Physical Exam Constitutional: healthy appearing and comfortable; no acute distress Eyes: PERRL, conjunctivae normal, anicteric sclerae ENMT: external ear and nose normal, oropharynx normal Neck: trachea midline, no thyromegaly Respiratory: normal respiratory effort, lungs clear to auscultation Cardiovascular: RRR, no murmur, no edema Heart Sounds: normal S1 and normal S2 Vessels: no JVD Extremities: no edema Gastrointestinal (Abdomen): normal bowel sounds, soft, nontender, no hepatosplenomegaly Skin: no rashes, warm and dry No rashes, color is pale Neurologic: PERRL, EOMI, accommodation nl, no face palsy, no dysarthria Psychiatric: A+Ox3, euthymic affect Results & Data Results & Data ([facility]) Vital Signs (Past 12 Hours) Vital Signs Temp Pulse Pulse Resp BP BP Pulse Ox 02/26/20 00:30 37.2 C 86 24 114/42 L 100 02/26/20 00:10 37.5 C 87 19 114/45 L 98 02/25/20 23:07 36.6 C 97 H 18 96/45 L 99 02/25/20 22:00 90 12 106/43 L 02/25/20 21:00 85 18 108/47 L 02/25/20 20:00 79 21 115/48 L 02/25/20 19:10 36.7 C 79 18 112/50 L 02/25/20 19:08 72 23 112/50 L 02/25/20 19:00 75 25 H 107/46 L 02/25/20 18:05 74 24 108/54 L 02/25/20 18:00 72 19 02/25/20 17:00 68 18 06/21/20 16:00 36.8 C 62 20 02/25/20 15:38 70 22 103/53 L 100 02/25/20 15:00 70 24 02/25/20 14:00 73 19 02/25/20 13:26 73 12 130/50 L 02/25/20 13:01 75 18 02/25/20 13:00 36.6 C 70 20 105/53 L 96 02/25/20 12:45 80 21 102/61 96 Coding Level of Care Code Critical Care 1st 30-74 mins Diagnoses Acute blood loss anemia D62 Hiatal hernia K44.9 Splenomegaly R16.1 GI bleed K92.2 Hematemesis K92.0 Nausea presence: with nausea DVT prophylaxis Z29.9 Peptic ulcer disease K27.9 (1) Hematemesis Nausea presence: with nausea Qualified Code(s): K92.0 - Hematemesis
[2020-02-26] MEDS: PANTOprazole 40 MG in DEXTROSE 5% 100 ML IV SCH ×5 (00:41→19:36)
[2020-02-26 00:58] LABS: White Blood Count 6.77 K/uL (4.8-10.8)
[2020-02-26 00:59] LABS: Mean Corpuscular Hemoglobin 29.8 pg (25-34); Mean Platelet Volume 11.4 fL (7.4-10.4); Platelet Count 176 K/uL (130-400); RDW Coefficient of Variation 13.7 % (11.5-14.5); RDW Standard Deviation 44.4 fL (36.4-46.3); Red Blood Count 2.15 M/uL (4.7-6.1)
[2020-02-26 01:02] LABS: Mean Corpuscular Volume 87.4 fL (80-100)
[2020-02-26] MEDS: OCTREOTIDE ACETATE 500 MCG in 0.9 % SODIUM CHLORIDE 100 ML IV SCH ×3 (01:04→19:35)
[2020-02-26 01:25] LABS: Fibrinogen 168 mg/dl (184-400); INR 1.2 (0.9-1.1); Prothrombin Time 12.9 Seconds (9.0-12.0)
[2020-02-26] MEDS ORDERED: SODIUM CHLORIDE 0.9% 250 ML IV PRN ×5 (01:30→19:07)
[2020-02-26] MEDS ORDERED: METOCLOPRAMIDE HCL INJ 5 MG/ML 2 ML VIAL IV ONE (04:30)
[2020-02-26 06:08] LABS: Hematocrit (blood only) 22.2 % (42-52); Hemoglobin 7.6 g/dL (14.0-18.0); Mean Corpuscular Hemoglobin 29.1 pg (25-34); Mean Corpuscular Hgb Conc 34.2 g/dL (32-36); Mean Corpuscular Volume 85.1 fL (80-100); Mean Platelet Volume 10.4 fL (7.4-10.4); Platelet Count 138 K/uL (130-400); RDW Coefficient of Variation 14.4 % (11.5-14.5); RDW Standard Deviation 45.3 fL (36.4-46.3); Red Blood Count 2.61 M/uL (4.7-6.1); White Blood Count 7.99 K/uL (4.8-10.8)
[2020-02-26 06:47] LABS: Albumin Level 2.5 gm/dl (3.4-5.0); BUN Creatinine Ratio 19.3 (10-20); Calcium 7.1 mg/dl (8.5-10.1); Creatinine Clr Calc Pharmacy 89.3 ml/min; Est GFR (African American) 92.6; Est GFR (Non-African American) 79.9; Potassium 4.7 mmol/L (3.5-5.1)
[2020-02-26 06:50] LABS: Bilirubin,Total 0.6 mg/dl (0.2-1); Globulin 2.4 gm/dl (2.5-4.0); Total Protein 4.9 gm/dl (6.4-8.2)
[2020-02-26 06:53] LABS: Fibrinogen 243 mg/dl (184-400)
--- NOTE | 2020-02-26 07:25 | History & Physical Bridge Note ---
Date of Service February 26, 2020 History & Physical Bridge Note I have examined the patient, reviewed the History & Physical and in the interval since the performance of the History & Physical I have noted the following changes of clinical significance: no changes noted Proceed with EGD. risks/benefits and procedure discussed with patient, who agrees to proceed
[2020-02-26] MEDS ORDERED: fentaNYL citrate 100 MCG/2 ML VIAL ONE (07:33)
[2020-02-26] MEDS ORDERED: SUCCINYLCHOLINE CHLORIDE 20 MG/ML 10 ML VIAL IV ONE ×2 (07:34→21:01)
[2020-02-26] MEDS ORDERED: LIDOCAINE HCL 2% 2 ML VIAL/AMP(20MG/ML) INFIL ONE (07:34)
[2020-02-26] MEDS ORDERED: PROPOFOL IV EMULSION 10 MG/ML 20 ML VIAL IV ONE (07:34)
--- NOTE | 2020-02-26 07:44 | Anesthesiology Consultation ---
Date of Service February 26, 2020 The patient has not been tested for Covid 19 but has no known Covid 19 exposure. He vomited blood last night. He is receiving his 3rd unit of blood. The patient has a history of frequent ibuprofen use. Assessment & Plan Chart Review Chart Review: Acceptable Risk for Surgery and Patient NOT seen in Pre Admission Testing Consults Requested none ASA [id number] Proposed Anesthesia Anesthesia Type: General Risk / Benefits Reviewed With: PT / POA / Parent / Guardian, Accepts Plan and Informed Consent Obtained History Surgery Operation Date: 02/26/20 06:00 Proposed Procedures p Esophagogastroduodenoscopy Dr. Santa - Melvin Santa MD Operation Date: 02/26/20 07:00 Proposed Procedures p Esophagogastroduodenoscopy - Melvin Santa MD Height/Weight Height: 5 ft 9 in Weight: 81.2 kg Allergies Allergy/AdvReac Type Severity Reaction Status Date / Time No Known Allergies Allergy Mild Verified 02/25/20 10:36 Medications Home Medications Medication Instructions Recorded Confirmed Last Taken No Known Home Medications 02/25/20 02/25/20 Unknown Active Medications Generic Name Dose Route Start Last Admin Trade Name Freq PRN Reason Stop Dose Admin Lactated Ringer's 1,000 mls @ 125 mls/hr 02/25/20 13:27 02/25/20 23:49 Lr IV 02/26/20 13:26 125 mls/hr .Q8H ARELY Infusion Octreotide Acetate 500 mcg/ 105 mls @ 10.5 mls/hr 02/26/20 00:15 02/26/20 01:04 Sodium Chloride IV 03/27/20 00:14 50 mcg/hr .Q10H ARELY 10.5 mls/hr Administration 50 MCG/HR Pantoprazole Sodium 40 mg/ 100 mls @ 20 mls/hr 02/26/20 00:15 02/26/20 05:40 Dextrose IV 03/27/20 00:14 8 mg/hr Q5H ARELY 20 mls/hr Administration 8 MG/HR Ondansetron HCl 4 mg 02/25/20 13:27 02/25/20 22:07 Zofran IV 03/26/20 13:26 4 mg Q4H PRN Administration Nausea And Vomiting Sucralfate 1 gm 02/25/20 16:30 06/21/20 20:41 Carafate PO 03/26/20 16:29 1 gm ACHS ARELY Administration NPO Date Last Intake of Fluids: 02/23/20 Time Last Intake of Fluids: 15:00 Date Last Intake of Solids: 02/22/20 Time Last Intake of Solids: 21:00 Past Medical History Medical History (Updated 02/26/20 @ 07:45 by Ronnie Galan MD) Anemia Gastrointestinal bleed Exercise / Class Metabolic Activity II 4-5 Yardwork/Stairs/Walk up hill Past Family History Family History Sister Pituitary adenoma age 25 when removed, 4 yrs younger than pt Past Surgical History Surgical History (Updated 02/26/20 @ 07:45 by Ronnie Galan MD) H/O shoulder surgery Past Anesthesia History No Hx of Anesthesia Complications and No Family Hx of Anesthesia Complications History of PONV No Hx of PONV and No Hx of Motion Sickness Social History Smoking Status: Former smoker Do You Dip or Chew Tobacco: No Hx Alcohol Use: Yes Alcohol type: beer alcohol intake frequency: other Alcohol Intake Frequency Comment: 4 to 5 drinks in a week Hx Substance Use: No substance use type: does not use Review of Systems no chest pain or sob Physical Exam Vital Signs Last Vital Signs Temp 37.5 C 02/26/20 07:04 Pulse 83 02/26/20 07:04 Resp 18 02/26/20 07:04 BP 106/36 L 02/26/20 07:04 Pulse Ox 99 02/26/20 07:04 ENMT Mouth: no TMJ abnormality Thyromental Distance: > or= 3.5 Finger Breadths Mallampati Class: II Neck normal visual inspection Respiratory normal respiratory effort Auscultation: lungs clear to auscultation bilaterally Cardiovascular Rate/Rhythm: regular rate and regular rhythm Neurologic moves all extremities Psychiatric Orientation: alert and oriented x 3 Testing Laboratory Results 02/26/20 05:54 02/26/20 05:54 PT 12.9 Seconds (9.0-12.0) H 02/26/20 00:41 INR 1.2 (0.9-1.1) H 02/26/20 00:41 APTT 27.3 Seconds (21.0-31.0) 02/25/20 08:48 Blood Type B Positive 02/25/20 08:48 Antibody Screen NEGATIVE 02/25/20 08:48 02/26/20 02/26/20 02/25/20 05:29 00:12 19:57 POC Glucose 166 H 205 H 179 H
[2020-02-26] MEDS ORDERED: ePHEDrine sulfate 50 MG/ML AMP IV PRN (07:48)
[2020-02-26] MEDS ORDERED: ONDANSETRON INJ 2 MG/ML 2 ML VIAL IV PRN (07:48)
[2020-02-26] MEDS ORDERED: LABETALOL HCL IV 5 MG/ML 20ML IV PRN (07:48)
[2020-02-26] MEDS ORDERED: fentaNYL citrate 100 MCG/2 ML VIAL IV PRN ×2 (07:48→16:05)
[2020-02-26] MEDS ORDERED: PHENYLEPHRINE 100MCG/ML 5ML SYR IV PRN (07:48)
[2020-02-26] MEDS ORDERED: MEPERIDINE HCL 25 MG/ML CARP/VIAL IV PRN (07:48)
[2020-02-26] MEDS ORDERED: ATROPINE SULFATE 0.1 MG/ML 10ML SYR IV PRN (07:48)
--- NOTE | 2020-02-26 08:23 | Procedure Note ---
Procedure Note Date of Service February 26, 2020 GI brief post op note/procedure note EGD findings: old clotted blood in the stomach, no active bleeding noted. No evidence of ulcers despite washing and suction. part of the fundus was obscured however due to clotted blood. No active bleeding throughout the procedure. Recs: --complete 72 hours of PPI drip, then protonix 40 mg BID thereafter for a 3 months --NPO for now, clear liquids tonight if stable --will need repeat EGD in 4 weeks to reassess. --d/c octreotide supportive care, IVFs, rest as per primary team Melvin Santa MD Gastroenterology Coding
--- NOTE | 2020-02-26 08:29 | GI REPORT ---
Patient Name: Raman Husain Procedure Date: 02/26/2020 7:39 AM Date of : 1990 Admit Type: Inpatient Age: 29 Gender: Male Attending MD: Melvin Santa MD Procedure: Upper GI endoscopy Providers: Melvin Santa MD Referring MD: Joe Kilpatrick Indications: Hematemesis Medicines: Monitored Anesthesia Care Complications: No immediate complications. Estimated blood loss: None. Estimated Blood Loss: Estimated blood loss: none. Procedure: Pre-Anesthesia Assessment: - Prior Anticoagulants: The patient has taken no previous anticoagulant or antiplatelet agents. - ASA Grade Assessment: III - A patient with severe systemic disease. After obtaining informed consent, the endoscope was passed under direct vision. Throughout the procedure, the patient's blood pressure, pulse, and oxygen saturations were monitored continuously. The Endoscope was introduced through the mouth, and advanced to the second part of duodenum. The upper GI endoscopy was accomplished without difficulty. The patient tolerated the procedure well. Findings: The examined esophagus was normal. Clotted blood was found in the gastric fundus. after washing and suctioning no evidence of any active bleeding was noted. Estimated blood loss: none. -no evidence of ulcers nor AVMs though fundus was partially obscured from clotted blood. The duodenal bulb and second portion of the duodenum were normal. Impression: - Normal esophagus. - Clotted blood in the gastric fundus. - Normal duodenal bulb and second portion of the duodenum. - No specimens collected. Recommendation: - Return patient to hospital [facility] for ongoing care. - NPO today. clear liquid diet tonight if stable -EGD in 4 weeks to reassess -complete 72 hours of protonix drip, then protonix 40 mg BID for 3 months thereafter Melvin Santa MD 02/26/2020 8:28:49 AM This report has been signed electronically. Note Initiated On: 02/26/2020 7:39 AM Number of Addenda: 0 I attest to the content of the Intraoperative Record and orders documented therein, exceptions below {[id number]}
--- NOTE | 2020-02-26 08:56 | Anesthesiology Progress Note ---
Date of Service February 26, 2020 Anesthesia Post Procedure Vital Signs Vital Signs: Temp Pulse Pulse Resp BP BP Pulse Ox 02/26/20 07:52 37.5 C 94 H 16 103/40 L 100 02/26/20 07:10 88 02/26/20 07:04 37.5 C 83 18 106/36 L 99 02/26/20 06:49 37.6 C H 85 18 103/39 L 99 02/26/20 06:34 37.5 C 87 14 114/42 L 98 02/26/20 05:39 37.6 C H 85 18 103/39 L 100 02/26/20 05:33 37.6 C H 88 18 106/43 L 99 02/26/20 05:18 37.5 C 88 18 127/47 L 100 02/26/20 05:00 37.5 C 92 H 20 100/62 97 02/26/20 04:47 37.3 C 90 20 114/47 L 99 02/26/20 04:31 37.4 C 86 22 113/47 L 100 02/26/20 04:29 37.2 C 89 24 113/47 L 100 02/26/20 04:14 37.4 C 91 H 18 120/46 L 99 02/26/20 04:11 37.4 C 84 24 116/46 L 100 02/26/20 03:53 37.3 C 88 22 111/43 L 100 02/26/20 03:41 37.3 C 86 16 111/43 L 99 02/26/20 03:26 37.1 C 88 18 108/40 L 99 02/26/20 03:08 37.2 C 90 22 109/43 L 99 02/26/20 01:45 37.1 C 86 16 113/46 L 98 02/26/20 01:00 37.1 C 88 16 120/50 L 98 02/26/20 00:48 37.2 C 85 16 118/50 L 100 02/26/20 00:33 37.1 C 83 22 113/48 L 98 02/26/20 00:30 37.2 C 86 24 114/42 L 100 02/26/20 00:10 37.5 C 87 19 114/45 L 98 02/26/20 00:00 02/25/20 23:07 36.6 C 97 H 18 96/45 L 99 02/25/20 22:00 90 12 106/43 L 02/25/20 21:00 85 18 108/47 L 02/25/20 20:00 79 21 115/48 L 02/25/20 19:10 36.7 C 79 18 112/50 L 02/25/20 19:08 72 23 112/50 L 02/25/20 19:00 75 25 H 107/46 L 02/25/20 18:05 74 24 108/54 L 02/25/20 18:00 72 19 02/25/20 17:00 68 18 02/25/20 16:00 36.8 C 62 20 02/25/20 15:38 70 22 103/53 L 100 02/25/20 15:00 70 24 02/25/20 14:00 73 19 02/25/20 13:26 73 12 130/50 L 02/25/20 13:01 75 18 02/25/20 13:00 36.6 C 70 20 105/53 L 96 02/25/20 12:45 80 21 102/61 96 02/25/20 12:30 68 21 102/61 96 02/25/20 12:27 80 21 02/25/20 12:26 78 22 115/56 L 96 02/25/20 12:15 73 16 02/25/20 12:00 75 21 02/25/20 11:45 75 17 02/25/20 11:30 53 L 18 109/57 L 95 02/25/20 11:15 62 19 94 02/25/20 11:00 61 21 112/62 96 02/25/20 10:45 64 22 95 02/25/20 10:30 65 22 103/57 L 96 02/25/20 10:15 69 20 02/25/20 10:14 67 18 111/46 L 96 02/25/20 10:09 68 22 02/25/20 10:08 71 24 111/46 L 96 02/25/20 09:45 71 20 96 02/25/20 09:30 72 22 118/61 98 02/25/20 09:21 67 67 19 133/76 133/76 96 02/25/20 09:15 76 17 97 02/25/20 09:01 81 20 98 02/25/20 09:00 81 22 119/64 99 Pulse Ox 02/26/20 07:52 02/26/20 07:10 98 02/26/20 07:04 02/26/20 06:49 02/26/20 06:34 02/26/20 05:39 02/26/20 05:33 02/26/20 05:18 02/26/20 05:00 02/26/20 04:47 02/26/20 04:31 02/26/20 04:29 02/26/20 04:14 02/26/20 04:11 02/26/20 03:53 02/26/20 03:41 02/26/20 03:26 02/26/20 03:08 02/26/20 01:45 02/26/20 01:00 02/26/20 00:48 02/26/20 00:33 02/26/20 00:30 02/26/20 00:10 02/26/20 00:00 98 02/25/20 23:07 02/25/20 22:00 02/25/20 21:00 02/25/20 20:00 02/25/20 19:10 02/25/20 19:08 02/25/20 19:00 02/25/20 18:05 02/25/20 18:00 02/25/20 17:00 02/25/20 16:00 02/25/20 15:38 02/25/20 15:00 02/25/20 14:00 02/25/20 13:26 02/25/20 13:01 02/25/20 13:00 02/25/20 12:45 02/25/20 12:30 02/25/20 12:27 02/25/20 12:26 02/25/20 12:15 02/25/20 12:00 02/25/20 11:45 02/25/20 11:30 02/25/20 11:15 02/25/20 11:00 02/25/20 10:45 02/25/20 10:30 02/25/20 10:15 02/25/20 10:14 02/25/20 10:09 02/25/20 10:08 02/25/20 09:45 02/25/20 09:30 02/25/20 09:21 02/25/20 09:15 02/25/20 09:01 02/25/20 09:00 Pain Intensity Abdomen: Pain Intensity: 1 Transfer of Care Handoff Completed per policy Notes Mental Status: alert / awake / arousable Patient Amnestic to Procedure: Yes Nausea / Vomiting: adequately controlled Pain: adequately controlled Airway Patency, RR, SpO2: stable & adequate BP & HR: stable & adequate Hydration State: stable & adequate Anesthetic Complications: no major complications apparent and Pt Satisfied with anesthetic care Notes: The patient is awake and comfortable. He is in his ICU room.
[2020-02-26] MEDS: SUCRALFATE 1 GM/10 ML UDC PO SCH ×4 (09:26→20:00)
--- NOTE | 2020-02-26 09:29 | Communication Note ---
Date of Service: February 26, 2020 Patient was discussed in multidisciplinary rounds. I also discussed patient with gastroenterology service. Patient feeling improved after endoscopy. Large likely NSAID associated ulcer, continue PPI for 72 hours Transition to twice daily PPI at that point Okay to have Carafate today, n.p.o. today start clears tomorrow Stop further blood product transfusion, trend today. If remains stable and we are in need of ICU availability he could transfer today otherwise likely downgrade tomorrow. Coding Level of Care Code None
[2020-02-26] MEDS: LACTATED RINGER'S 1,000 ML IV SCH (09:30)
[2020-02-26] MEDS ORDERED: PHENYLEPHRINE HCL 10 MG/ML VIAL ONE (11:21)
[2020-02-26] MEDS ORDERED: CALCIUM CHLORIDE 10% 10 ML SYR IV ONE (11:21)
[2020-02-26] MEDS ORDERED: RAPID SEQUENCE INDUCTION BAG ONE (11:24)
[2020-02-26] MEDS ORDERED: PHENYLEPHRINE HCL 20 MG in DEXTROSE 5% 500 ML IV SCH (11:30)
[2020-02-26] MEDS ORDERED: METOCLOPRAMIDE HCL INJ 5 MG/ML 2 ML VIAL IV STA (11:30)
--- NOTE | 2020-02-26 11:31 | Hospitalist Progress Note ---
Date of Service February 26, 2020 Assessment & Plan Admission and Anticipated Discharge Date Admission Date: February 25, 2020 Results & Data Results & Data ([facility]) Vital Signs (Past 12 Hours) Vital Signs Temp Pulse Pulse Resp BP BP Pulse Ox 02/26/20 07:52 37.5 C 94 H 16 103/40 L 100 02/26/20 07:10 88 02/26/20 07:04 37.5 C 83 18 106/36 L 99 02/26/20 06:49 37.6 C H 85 18 103/39 L 99 02/26/20 06:34 37.5 C 87 14 114/42 L 98 02/26/20 05:39 37.6 C H 85 18 103/39 L 100 02/26/20 05:33 37.6 C H 88 18 106/43 L 99 02/26/20 05:18 37.5 C 88 18 127/47 L 100 02/26/20 05:00 37.5 C 92 H 20 100/62 97 02/26/20 04:47 37.3 C 90 20 114/47 L 99 02/26/20 04:31 37.4 C 86 22 113/47 L 100 02/26/20 04:29 37.2 C 89 24 113/47 L 100 02/26/20 04:14 37.4 C 91 H 18 120/46 L 99 02/26/20 04:11 37.4 C 84 24 116/46 L 100 02/26/20 03:53 37.3 C 88 22 111/43 L 100 02/26/20 03:41 37.3 C 86 16 111/43 L 99 02/26/20 03:26 37.1 C 88 18 108/40 L 99 02/26/20 03:08 37.2 C 90 22 109/43 L 99 02/26/20 01:45 37.1 C 86 16 113/46 L 98 02/26/20 01:00 37.1 C 88 16 120/50 L 98 02/26/20 00:48 37.2 C 85 16 118/50 L 100 02/26/20 00:33 37.1 C 83 22 113/48 L 98 02/26/20 00:30 37.2 C 86 24 114/42 L 100 02/26/20 00:10 37.5 C 87 19 114/45 L 98 02/26/20 00:00 Pulse Ox 02/26/20 07:52 02/26/20 07:10 98 02/26/20 07:04 02/26/20 06:49 02/26/20 06:34 02/26/20 05:39 02/26/20 05:33 02/26/20 05:18 02/26/20 05:00 02/26/20 04:47 02/26/20 04:31 02/26/20 04:29 02/26/20 04:14 02/26/20 04:11 02/26/20 03:53 02/26/20 03:41 02/26/20 03:26 02/26/20 03:08 02/26/20 01:45 02/26/20 01:00 02/26/20 00:48 02/26/20 00:33 02/26/20 00:30 02/26/20 00:10 02/26/20 00:00 98 PG Care Time/CCT Total # of Minutes Spent Total Time Spent with Patient: Total time spent is greater than 50% in coordination of care (as documented) at patient's floor/unit and/or counseling patient: Coding
[2020-02-26] MEDS ORDERED: METOCLOPRAMIDE HCL INJ 5 MG/ML 2 ML VIAL ONE (11:32)
[2020-02-26] MEDS ORDERED: MIDAZOLAM HCL 1 MG/ML 2ML VIAL ONE (11:48)
[2020-02-26] MEDS ORDERED: PROPOFOL IV EMULSION 10 MG/ML 100 ML VIAL IV ONE (11:51)
--- NOTE | 2020-02-26 12:59 | XRay Report ---
XR chest 1V portable CLINICAL HISTORY: Post intubation RESPIRATORY FAILURE COMPARISON STUDY: 02/25/2020 FINDINGS: The cardiac and mediastinal contours remain stable. There is no focal pulmonary consolidati on. There is no failure. There are no pleural effusions. There has been interval insertion of an endo tracheal tube 6.3 cm above the margarette.[ IMPRESSION: Interval insertion of an endotracheal tube 6.3 cm above the margarette. ACT 112: Negative or not required by law. Electronically signed by: Ladarius Jimenez M.D. 02/26/2020 12:58 PM
[2020-02-26 13:58] LABS: Hematocrit (blood only) 22.3 % (42-52); Hemoglobin 7.8 g/dL (14.0-18.0); Mean Corpuscular Hemoglobin 29.7 pg (25-34); Mean Corpuscular Volume 84.8 fL (80-100); Mean Platelet Volume 10.5 fL (7.4-10.4); Platelet Count 117 K/uL (130-400); RDW Coefficient of Variation 15.8 % (11.5-14.5); RDW Standard Deviation 49.5 fL (36.4-46.3); Red Blood Count 2.63 M/uL (4.7-6.1); White Blood Count 8.22 K/uL (4.8-10.8)
[2020-02-26] MEDS ORDERED: MIDAZOLAM HCL 5 MG/ML VIAL IV STA (14:19)
[2020-02-26] MEDS: PHENYLEPHRINE (STAT use only) 10MG in D5W 250 ML IV SCH ×2 (14:33→15:08)
--- NOTE | 2020-02-26 14:43 | Communication Note ---
Date of Service: February 26, 2020 GI brief note: spoke to primary team regarding patient's episode of vomiting after the procedure today (no active bleeding noted throughout entire EGD), discussed the possibility of a repeat EGD. I called the family for possible consent (as patient is intubated) and they expressed at this time that they would like the patient to be transferred to a tertiary care center, specifically [facility] as they know a physician there and prefer they take over his care. I conveyed this to the primary team who understood. Recs: --transfer to [facility] as per family's wishes for further care when able --continue PPI drip for a total of 72 hours --NPO --trend H/H, transfuse prn hgb <7 Melvin Santa MD Gastroenterology
--- NOTE | 2020-02-26 14:53 | Procedure Note ---
Procedure Note Date of Service February 26, 2020 Procedure Date: Noted above Procedure: Endotracheal intubation Pre-procedure Diagnosis: CODE BLUE, hematemesis Post-procedure Diagnosis: same as above Prior to Procedure: Informed Consent: emergent Attending Staff: Julianna Adams DO The identity of the patient was confirmed and a bedside time out was performed. Description of Procedure: Patient was evaluated and required intubation for impending respiratory failure. The patient was prepared in the usual fashion. A Cobb 2 laryngoscope was used. A 7.5 mm inner diameter endotrachial tube was placed endotracheally to 22 cm at the teeth. A grade 1 view was obtained. The endotracheal tube was noted to pass through the vocal cords. Chest rise was bilateral. Bilateral breath sounds were heard without air sounds in the abdomen. Mist was noted in the endotracheal tube. End-tidal CO2 measurement was positive. Chest x-ray shows proper endotracheal tube placement, and the tube was advanced 2 cm. Complications: None Findings: Not applicable Specimens: Not applicable Estimated blood loss: Zero Coding CPT Codes Resuscitation - Resuscitation: 52488 Endotracheal Intubation, emergency ([id number]) [facility] Procedure Codes (Charges) Resuscitation Resuscitation: 46189 Endotracheal Intubation, emergency
[2020-02-26] MEDS ORDERED: CALCIUM CHLORIDE 10% 1,000 MG in SODIUM CHLORIDE 0.9% 50 ML IV STA (15:00)
--- NOTE | 2020-02-26 15:00 | Communication Note ---
Date of Service: February 26, 2020 Called to bedside for CODE BLUE. Patient was doing well, was being assisted to the bathroom and joking with staff, patient laughed and then had syncopal e pisode. Staff reports convulsive syncope, was put back into bed. Had electrical rhythm through event based on monitor tech. Was initially hypotensive. Had bloody bowel movement. Patient's mental status was slowly improving, was being given slow IV calcium chloride given recent blood transfusions and hypotension as push dose vasoactive medications were unavailable, patient had large volume hematemesis. Patient was emergently intubated to ensure control of airway in case this represented worsening gastrointestinal hemorrhage. Repeat labs ordered and have been reviewed. Patient was given 2 units of packed red blood cells during event of syncope: Repeat blood count was 7.8. Lactate is within normal limits. Ionized calcium is elevated which was anticipated. I was informed by the hospitalist that when gastroenterology contacted family for additional consent for repeat EGD they desired transfer to tertiary care center. At this time patient is pending transfer to tertiary care for further evaluation management. Coding Level of Care Code Critical Care 1st 30-74 mins Time Spent (min) 45 Comment I have personally spent 45 minutes of critical care time in the direct management of this patient. This is a life/limb threatening event. This includes time spent evaluating patient, direct bedside care, chart review, placing orders, interpretation of diagnostic studies, discussion with consultants, patient, and/or family members regarding treatment decisions, as w ell as other required patient management activities. This time is exclusive of all separately billable procedures, and teaching time and separate from and in addition to any other critical care service time.
[2020-02-26] MEDS ORDERED: PROPOFOL BOLUS FROM BAG IV PRN (15:01)
[2020-02-26] MEDS ORDERED: STAT IV Infusion **Titration per Protocol STA (15:01)
[2020-02-26] MEDS: propofoL 1,000 MG/100 ML VIAL IV SCH ×3 (15:11→20:36)
[2020-02-26] MEDS ORDERED: OPTIRAY 320 125ml IV PRN (15:55)
--- NOTE | 2020-02-26 15:58 | Discharge Summary ---
Date of Service date of admission - February 25, 2020 date of discharge - February 26, 2020 Admission HPI Per Admitting Provider This is a 29-year-old male PMHx left shoulder ligament repair, back injury, remote smoking history (2 to 3 months), who presents for acute onset of abdominal pain over the past 2 days, followed by vomiting with bright red blood. He was in his normal state of health prior to yesterday, but then developed some indigestion which seem to wax and wane. He reports this morning became acutely nauseous and vomited bright red blood, he then proceeded to vomit 2 more times this morning with bright red blood and some small amounts of coffee-ground appearing emesis. Last time he ate or drank anything was yesterday. His last bowel movement was yesterday and was dark and tarry in appearance, denies any BRBPR. He has been using ibuprofen 600 mg once daily on and off for the past week as he has back pain from an injury as a teenager, as he works with tree removal/cutting down/logging daily. No other routine medications. SHx: He admits to drinking beer, 3 drinks on Wednesday night, 2 drinks on night. He denies drinking on a daily basis. PMHx: He denies any history of abdominal issues previously, no history of ulcerative colitis, Crohn's, IBS. FamHx: No family history of abdominal complaints that he is aware of. His younger sister was diagnosed with a pituitary adenoma 1 year ago, [facility], currently age 26. Principal Diagnosis hematemesis 2nd to upper GI bleeding with resulting acute blood loss anemia Discharge Exam Constitutional well developed, well nourished and average body habitus; no acute distress sedated, intubated ENMT external ear and nose normal, oropharynx normal ETT in place; enteric tube in place Respiratory normal respiratory effort, lungs clear to auscultation Cardiovascular Rate/Rhythm: regular rate and regular rhythm Heart Sounds: normal S1 and normal S2; no murmur Vessels: posterior tibial pulses present and dorsalis pedis pulses present; no JVD Extremities: no edema Gastrointestinal (Abdomen) normal bowel sounds, soft, nontender, no hepatosplenomegaly Skin + pallor Discharge Data Allergies Allergy/AdvReac Type Severity Reaction Status Date / Time No Known Allergies Allergy Mild Verified 02/25/20 10:36 Consultations Consult Case Management Consult Gastroenterology - Melvin Salimi MD Consult Barkeep - Dom Adams DO Procedures Performed 1. Operation Date: 02/26/20 07:00 Actual Procedures Esophagogastroduodenoscopy - Melvin Santa MD Old clotted blood in the stomach, no active bleeding noted. No evidence of ulcers despite washing and suction. Part of the fundus was obscured however due to clotted blood. No active bleeding throughout the procedure. 2. Intubation/mechanical ventilation 3. THREE units PRBCs 4. 1 unit of FPP 5. 1 unit of cryoprecipitate Ordered Studies 02/25/20 08:33 CT abd pelvis IV con only - IMPRESSION: 1. No acute infectious or inflammatory findings are identified in the abdomen or pelvis. 2. Splenomegaly. 3. Small hiatal hernia. 02/26/20 15:46 CTA abdomen pelvis w con - FINDINGS: Compromised exam due to moderate patient motion. Abdominal aorta as well as iliac arterial vasculature. Unremarkable. No evidence for aneurysm or dissection. Moderate stenosis origin celiac axis. The superior mesenteric artery, renal arteries, and inferior mesenteric arterial structures are unremarkable. Nonobstructive bowel pattern. Hospital Course (1) Acute blood loss anemia: Presenting hemoglobin was 10.8, falling to 6.5 late in the day on 02/25/20. Received a total of 3 units of PRBCs while here. Discharge hemoglobin was 7.8 on 02/26/20. He also received 1 unit of FPP and 1 unit of cryoprecipitate. Acute blood loss anemia was 2nd to upper GI bleeding. Source - stomach; PUD? EGD on 02/26/20 could not visualize the exact location of bleeding due to adherent clot on the gastric wall. Did require low-dose phenylephrine just prior to transfer to [facility] - likely a combination of his blood loss as well as sedation while on the vent. Lastly, CTA abd/pelvis on 02/26/2020 showed moderate stenosis of the celiac axis but no other abnormalities. (2) GI bleed: Upper - see above. Received octreotide and PPI drip his entire stay. s/p EGD with results as noted. s/p 3 units PRBCs. Discharge hemoglobin 7.8 just prior to transfer. Following his syncopal event/code blue/recurrent hematemesis (see below) a repeat EGD was going to be performed by Dr. Santa. However, it was at that time that the patient's family requested transfer to tertiary care - specifically, [facility]. [place] was contacted, and Dr. Lucas Gross accepted Mr. Husain in transfer to the [facility] ICU. (3) Hematemesis: 2nd to upper GI bleeding. EGD with adherent clot to the gastric fundus thus the entire gastric lining could not be examined to determine the exact location of the bleeding. 1-2 hours post-EGD on the am of 02/26/20 the patient had recurrent hematemesis in the midst of a syncopal event. Code blue was called, and he received a brief period (several seconds) of chest compressions. He subsequently maintained his pulse and was intubated for airway protection in the midst of the hematemesis. He remained on the ventilator until his transfer to [facility]. Again he was maintained on PPI and octreotide drips. (4) Acute respiratory failure: Intubated for airway protection in the midst of his syncopal event/code blue and recurrent hematemesis. (5) Splenomegaly: Seen incidentally on CT abd/pelvis on 02/24. Etiology and significance of such is uncertain. No other signs of chronic liver disease. (6) Hiatal hernia: Small as noted on CT (7) Syncope: In the setting of GI bleeding and hematemesis. (8) COVID-19 ruled out by laboratory testing: COVID-19 PCR on 02/26/20 was negative prior to transfer to tertiary care. I would like to thank Dr. Lucas Gross and the Medical ICU at [facility] for accepting Mr. Husain in transfer for ongoing care. Total Time Total Time Spent Total Time Spent (In Minutes): 60 Total Time Includes: Examination of the Patient, Discharge Planning, Medication Reconciliation and Communication With Other Providers Discharge Plan Discharge Items Patient Disposition: Transfer Acute Care Hospital Reason For Visit: GI BLEED Discharge Diagnosis: 1. upper GI bleeding with resulting acute blood loss anemia 2. hematemesis 2nd to #1 3. acute respiratory failure 2nd to #2 4. splenomegaly Activity: As commented below Activity Comment: bedrest Non-emergency contact: Primary Care Provider and [employer] Administrator Call non-emergency contact if: you have any medication questions Follow-up/Referrals: Jeffery Hodge III, MD [Primary Care Provider] - Diet: Nothing by Mouth Addtl Attending Provider Instructions: Follow-up to be determined following admission at [facility]. Pending Studies at Discharge: No Stand-Alone Forms: My [facility] [employer]Ac[employer] Skilled Items Patient informed of condition?: No DNR: No Discharge Level of Care: Other Communicable Disease: No Discharge Prognosis: Other Lines: Peripheral IV Urinary Catheter: No Medications and DC Order Prescriptions: No Action No Known Home Medications RF: 0 Discharge Orders: Discharge Order (Routine); Ordered 02/26/20 Ordered By: Joe Kilpatrick Admission Data Admit Date/Time: 02/25/20 11:30 Attending Provider: Joe Kilpatrick Admit Provider: Brendan Choudhary Primary Care Provider: Jeffery Hodge III Other Providers: Cherrie Banda ; Brendan Choudhary ; Melvni Santa ; Dewey Fletcher Coding Level of Care Code D/C Day Management >30 mins Diagnoses Acute blood loss anemia D62 GI bleed K92.2 Hematemesis K92.0 Nausea presence: with nausea Acute respiratory failure J96.00 Splenomegaly R16.1 Hiatal hernia K44.9 Syncope R55 COVID-19 ruled out by laboratory testing Z03.819
[2020-02-26] MEDS: fentaNYL citrate 100 MCG/2 ML VIAL IV PRN ×3 (16:12→19:24)
--- NOTE | 2020-02-26 16:18 | CT Scan Report ---
Study: CT angiography abdomen and pelvis HISTORY: Upper GI bleed. COMPARISON: None. FINDINGS: Compromised exam due to moderate patient motion. Abdominal aorta as well as iliac arterial vasculature. Unremarkable. No evidence for aneurysm or diss ection. Moderate stenosis origin celiac axis. The superior mesenteric artery, renal arteries, and inferior me senteric arterial structures are unremarkable. Nonobstructive bowel pattern. IMPRESSION: 1. Limited exam due to significant patient motion. 2. Moderate stenosis origin celiac axis. 2. No additional significant arterial findings are identified. Electronically signed by: Liban Barahona M.D. 02/26/2020 4:17 PM
[2020-02-26 19:04] LABS: Hematocrit (blood only) 21.7 % (42-52); Hemoglobin 7.8 g/dL (14.0-18.0)
[2020-02-26] MEDS ORDERED: VECURONIUM BROMIDE 10 MG VIAL IV ONE (21:01)
[2020-02-26] MEDS ORDERED: KETAMINE HCL INJ 50 MG/ML 10 ML VIAL IV ONE (21:01)
[2020-02-26] MEDS ORDERED: fentaNYL citrate 100 MCG/2 ML VIAL IV ONE (21:01)
[2020-02-26] MEDS ORDERED: MIDAZOLAM HCL 5 MG/ML 10 ML IV ONE (21:01)
== END 2020-02-26 21:02 | disposition short-term general hospital (02) | DRG 378 ==
LOC: ED 08:28 → SUATTDRO 11:30 → 1E 11:30